=== PATIENT | female | born 1985 | race Caucasian/White ===

== ENCOUNTER → 2017-07-13 | Outpatient (CLI) | payer OTHER | LOC: LAB 10:25 | DX: Z01.89 Encounter for other specified special examinations (principal) ==

== ENCOUNTER → 2018-02-24 | Outpatient (CLI) | payer OTHER | LOC: RAD 11:45 | DX: M62.830 Muscle spasm of back (principal); M54.5 Low back pain ==

== ENCOUNTER → 2018-10-14 | Outpatient (CLI) | payer OTHER ==
[2018-10-14 12:03] LABS: EOS % 0.8 % (1.0-5.0); HEMATOCRIT 42.8 % (37.0-47.0); LYMPH# 1.4 (1.50-4.00); MEAN CELL VOLUME 90 fl (78-100); MEAN CORPUSCULAR HEMOGLOBIN 30 pg (27-31); MEAN CORPUSCULAR HGB CONC 33 g/dL (33-37); MEAN PLATELET VOLUME 8.4 fl (7.4-10.4); MONO # 0.5 (0.20-0.80); PLATELET COUNT 326 K/mm3 (130-400); RED BLOOD COUNT 4.74 M/mm3 (4.10-5.30); RED CELL DISTRIBUTION WIDTH 12.3 % (11.5-14.5); WHITE BLOOD COUNT 4.9 K/mm3 (4.8-10.8)
[2018-10-14 12:48] LABS: ALBUMIN 4.3 g/dL (3.5-5.0); CALCIUM 10.1 mg/dL (8.4-10.2); POTASSIUM 4.3 mmol/L (3.5-5.1); TOTAL BILIRUBIN 0.5 mg/dL (0.2-1.2); TOTAL PROTEIN 7.7 g/dL (6.4-8.3)
== END ==
LOC: LAB 11:40
PROVIDERS: Physician Assistant
DX: Z00.00 Encounter for general adult medical examination without abnormal findings (principal); M54.5 Low back pain; R53.83 Other fatigue; E78.49 Other hyperlipidemia; Z83.49 Family history of other endocrine, nutritional and metabolic diseases; Z83.3 Family history of diabetes mellitus

== ENCOUNTER → 2019-10-13 | Outpatient (CLI) | payer OTHER | LOC: LAB 10:37 | DX: N89.8 Other specified noninflammatory disorders of vagina (principal) ==

== ENCOUNTER → 2019-11-13 | Outpatient (CLI) | payer OTHER | LOC: LAB 11:40 | DX: Z20.828 Contact with and (suspected) exposure to other viral communicable diseases (principal) ==

== ENCOUNTER → 2020-01-18 | Outpatient (CLI) | payer OTHER ==
[2020-01-18 17:17] LABS: URINE APPEARANCE CLEAR; URINE BILIRUBIN NEGATIVE (NEGATIVE); URINE BLOOD NEGATIVE (NEGATIVE); URINE COLOR YELLOW; URINE GLUCOSE NEGATIVE (NEGATIVE); URINE KETONE NEGATIVE (NEGATIVE); URINE LEUKOCYTE ESTERASE NEGATIVE (NEGATIVE); URINE NITRATE NEGATIVE (NEGATIVE); URINE PROTEIN(semi-quant) NEGATIVE (NEGATIVE); URINE UROBILINOGEN NORMAL (NORMAL); URINE WBC 0-1 /hpf (0-3)
[2020-01-18 17:18] LABS: URINE MUCUS PRESENT (NOT PRESENT)
== END ==
LOC: LAB 14:38
PROVIDERS: Physician Assistant
DX: R30.0 Dysuria (principal)

== ENCOUNTER → 2020-10-23 | Outpatient (CLI) | payer OTHER ==
[2020-10-23 09:20] LABS: BASO # 0.04 (0.02-0.10); EOS # 0.05 (0.04-0.40); EOS % 0.7 % (1.0-5.0); HEMATOCRIT 37.7 % (37.0-47.0); HEMOGLOBIN 12.8 g/dL (12.5-16.0); LYMPH# 2.63 (1.50-4.00); MEAN CELL VOLUME 90 fl (78-100); MEAN CORPUSCULAR HEMOGLOBIN 30 pg (27-31); MEAN CORPUSCULAR HGB CONC 34 g/dL (33-37); MEAN PLATELET VOLUME 8.2 fl (7.4-10.4); NEU # 3.79 (1.40-6.50); PLATELET COUNT 270 K/mm3 (130-400); RED BLOOD COUNT 4.21 M/mm3 (4.10-5.30); RED CELL DISTRIBUTION WIDTH 11.9 % (11.5-14.5); WHITE BLOOD COUNT 7.3 K/mm3 (4.8-10.8)
[2020-10-23 09:28] LABS: POTASSIUM 4.2 mmol/L (3.5-5.1)
[2020-10-23 09:29] LABS: ALBUMIN 3.9 g/dL (3.5-5.0)
[2020-10-23 09:31] LABS: TOTAL PROTEIN 6.4 g/dL (6.4-8.3)
[2020-10-23 09:33] LABS: TOTAL BILIRUBIN 0.5 mg/dL (0.2-1.2)
== END ==
LOC: LAB 08:54
PROVIDERS: Physician Assistant
DX: Z00.00 Encounter for general adult medical examination without abnormal findings (principal); Z13.29 Encounter for screening for other suspected endocrine disorder; E78.5 Hyperlipidemia, unspecified; L65.9 Nonscarring hair loss, unspecified

== ENCOUNTER → 2021-01-01 | Outpatient (CLI) | payer OTHER | LOC: RAD 10:14 | DX: M54.2 Cervicalgia (principal); M40.50 Lordosis, unspecified, site unspecified ==

== ENCOUNTER 2021-01-09 09:58 | Outpatient (RCR) | payer OTHER | END 2021-04-09 | disposition home or self-care (01) | LOC: PT | DX: M54.2 Cervicalgia (principal) ==

== ENCOUNTER → 2021-11-13 | Outpatient (CLI) | payer OTHER ==
[2021-11-13 15:31] LABS: BASO # 0.04 K/mm3 (0.02-0.10); EOS # 0.04 K/mm3 (0.04-0.40); EOS % 0.6 % (1.0-5.0); HEMATOCRIT 39.6 % (37.0-47.0); HEMOGLOBIN 13.5 g/dL (12.5-16.0); LYMPH# 1.81 K/mm3 (1.50-4.00); MEAN CELL VOLUME 92 fl (78-100); MEAN CORPUSCULAR HEMOGLOBIN 31 pg (27-31); MEAN CORPUSCULAR HGB CONC 34 g/dL (33-37); MEAN PLATELET VOLUME 8.1 fl (7.4-10.4); MONO # 0.52 K/mm3 (0.20-0.80); NEU # 4.09 K/mm3 (1.40-6.50); PLATELET COUNT 289 K/mm3 (130-400); RED BLOOD COUNT 4.32 M/mm3 (4.10-5.30); RED CELL DISTRIBUTION WIDTH 11.7 % (11.5-14.5); WHITE BLOOD COUNT 6.5 K/mm3 (4.8-10.8)
[2021-11-13 15:38] LABS: POTASSIUM 3.9 mmol/L (3.5-5.1)
[2021-11-13 15:39] LABS: ALBUMIN 4.6 g/dL (3.5-5.0)
[2021-11-13 15:40] LABS: CALCIUM 10.2 mg/dL (8.3-10.5)
[2021-11-13 15:43] LABS: TOTAL BILIRUBIN 0.6 mg/dL (0.2-1.2)
== END ==
LOC: LAB 15:15 → RAD 15:15
PROVIDERS: Physician Assistant
DX: Z00.00 Encounter for general adult medical examination without abnormal findings (principal); Z13.1 Encounter for screening for diabetes mellitus; I49.9 Cardiac arrhythmia, unspecified; K90.9 Intestinal malabsorption, unspecified; Z83.3 Family history of diabetes mellitus

== ENCOUNTER → 2022-08-03 | Outpatient (CLI) | payer OTHER ==
[2022-08-03 09:52] LABS: BASO # 0.02 K/mm3 (0.02-0.10); EOS # 0.01 K/mm3 (0.04-0.40); EOS % 0.2 % (1.0-5.0); HEMATOCRIT 38.8 % (37.0-47.0); HEMOGLOBIN 13.1 g/dL (12.5-16.0); LYMPH# 1.38 K/mm3 (1.50-4.00); MEAN CELL VOLUME 92 fl (78-100); MEAN CORPUSCULAR HEMOGLOBIN 31 pg (27-31); MEAN CORPUSCULAR HGB CONC 34 g/dL (33-37); MEAN PLATELET VOLUME 8.3 fl (7.4-10.4); MONO # 0.43 K/mm3 (0.20-0.80); NEU # 2.26 K/mm3 (1.40-6.50); PLATELET COUNT 286 K/mm3 (130-400); RED BLOOD COUNT 4.23 M/mm3 (4.10-5.30); RED CELL DISTRIBUTION WIDTH 11.8 % (11.5-14.5); WHITE BLOOD COUNT 4.1 K/mm3 (4.8-10.8)
[2022-08-03 09:55] LABS: ALBUMIN 4.2 g/dL (3.5-5.0); POTASSIUM 4.3 mmol/L (3.5-5.1)
[2022-08-03 09:56] LABS: CALCIUM 9.5 mg/dL (8.3-10.5)
[2022-08-03 09:57] LABS: TOTAL PROTEIN 7.3 g/dL (6.4-8.3)
[2022-08-03 09:59] LABS: TOTAL BILIRUBIN 0.3 mg/dL (0.2-1.2)
== END ==
LOC: RAD 09:14
PROVIDERS: Internal Medicine
DX: R10.13 Epigastric pain (principal)

== ENCOUNTER → 2022-09-18 | Outpatient (CLI) | payer OTHER | LOC: RAD 08:54 | DX: K76.0 Fatty (change of) liver, not elsewhere classified (principal) | CPT/HCPCS: Q9967 ==

== ENCOUNTER → 2023-10-30 | Outpatient (CLI) | payer OTHER | LOC: LAB 11:27 | DX: N39.0 Urinary tract infection, site not specified (principal) ==

== ENCOUNTER → 2024-03-25 | Outpatient (CLI) | payer OTHER ==
[2024-03-25 07:00] LABS: BASO # 0.02 K/mm3 (0.02-0.10); EOS # 0.03 K/mm3 (0.04-0.40); EOS % 0.5 % (1.0-5.0); HEMATOCRIT 37.5 % (37.0-47.0); HEMOGLOBIN 13.2 g/dL (12.5-16.0); LYMPH# 1.44 K/mm3 (1.50-4.00); MEAN CELL VOLUME 91 fl (78-100); MEAN CORPUSCULAR HEMOGLOBIN 32 pg (27-31); MEAN CORPUSCULAR HGB CONC 35 g/dL (33-37); MEAN PLATELET VOLUME 8.3 fl (7.4-10.4); MONO # 0.57 K/mm3 (0.20-0.80); NEU # 4.49 K/mm3 (1.40-6.50); PLATELET COUNT 308 K/mm3 (130-400); RED BLOOD COUNT 4.14 M/mm3 (4.10-5.30); RED CELL DISTRIBUTION WIDTH 11.9 % (11.5-14.5); WHITE BLOOD COUNT 6.6 K/mm3 (4.8-10.8)
[2024-03-25 07:08] LABS: ALBUMIN 3.9 g/dL (3.5-5.0)
[2024-03-25 07:09] LABS: CALCIUM 9.4 mg/dL (8.3-10.5)
[2024-03-25 07:10] LABS: TOTAL PROTEIN 6.9 g/dL (6.4-8.3)
[2024-03-25 07:12] LABS: TOTAL BILIRUBIN 0.4 mg/dL (0.2-1.2)
== END ==
LOC: LAB 06:44
PROVIDERS: Physician Assistant
DX: Z13.220 Encounter for screening for lipoid disorders (principal); Z13.29 Encounter for screening for other suspected endocrine disorder; R53.83 Other fatigue

== ENCOUNTER → 2024-03-29 | Outpatient (CLI) | payer OTHER | LOC: LAB 07:46 | DX: Z32.01 Encounter for pregnancy test, result positive (principal) ==